=== PATIENT | female | born 1985 | race Caucasian/White ===

== ENCOUNTER 2018-10-15 14:21 | Emergency (ER) | payer OTHER, MEDICAID ==
[~2018-10-15] VITALS: Ht 172.7 cm; Wt 65.8 kg
[2018-10-15 14:55] LABS: BASOPHILS # (AUTO) 0.05 x10^3/uL (0-0.1); BASOPHILS % (AUTO) 0 % (0-1); EOSINOPHILS # (AUTO) 0.03 x10^3/uL (0-0.4); EOSINOPHILS % (AUTO) 0 % (1-7); LYMPHOCYTES # (AUTO) 1.37 x10^3/uL (1-3.4); LYMPHOCYTES % (AUTO) 11 % (22-44); MD NO; MEAN CORPUSCULAR HEMOGLOBIN 31.3 pg (27.0-34.8); MEAN CORPUSCULAR HGB CONC 34.2 g/dL (32.4-35.8); MEAN CORPUSCULAR VOLUME 91.4 fL (80-100); MEAN PLATELET VOLUME 8.2 fL (7.4-10.4); MONOCYTES # (AUTO) 0.59 x10^3/uL (0.2-0.8); MONOCYTES % (AUTO) 5 % (2-9); NEUTROPHILS # (AUTO) 10.33 x10^3/uL (1.8-6.8); NEUTROPHILS % (AUTO) 84 % (42-75); PLATELET COUNT 347 x10^3/uL (130-400); RED BLOOD COUNT 4.38 x10^6/uL (3.82-5.3); RED CELL DISTRIBUTION WIDTH 12.6 % (9.6-15.2)
[2018-10-15] MEDS ORDERED: SODIUM CHLORIDE FLUSH 10ML SYR IVF ONE (15:00)
[2018-10-15 15:01] LABS: ALBUMIN 4.2 g/dL (3.4-5.0); ANION GAP 8 mmol/L (5-15); CALCIUM 8.7 mg/dL (8.5-10.1); CHLORIDE 104 mmol/L (98-107)
--- NOTE | 2018-10-15 15:08 | NUR ---
PT C/O ANTERIOR CERVICAL SWELLING/PAIN X 3 DAYS, DENIES OTHER SX. PT ABLE TO SWALLOW, PT MAINTAINING AIRWAY WITH NO S/SX ASPIRATION, NO S/SX RESP DISTRESS. BP AND SPO2 MONITORS IN PLACE. CALL LIGHT IN REACH. AWAITING LABS AND DISPO AT THIS TIME.
[2018-10-15 15:10] VITALS: BP 117/76
--- NOTE | 2018-10-15 15:16 | NUR ---
PT GIVEN DC INSTRUCTIONS AND SCRIPT. PT EDUCATED REGARDING AMOXICILLIN RX. PT AMB TO DC DESK WTIH STEADY GAIT, NADN AT DC.
== END 2018-10-15 15:17 | disposition home or self-care (01) ==
LOC: ED 15:00
DX: L04.8 Acute lymphadenitis of other sites (principal)
CPT/HCPCS: 36415; 80048; 82040; 85025; 99283